=== PATIENT | male | born 2000 | race Caucasian/White ===

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

== ENCOUNTER → 2021-02-08 | Outpatient (CLI) | payer OTHER ==
--- NOTE | 2021-02-08 12:14 | REP ---
INDICATION: PRIOR HX OF FRACTURE, NEEDS XRAY FOR PURPOSE. COMPARISON: None. TECHNIQUE: AP and lateral FINDINGS: There is no acute fracture or destructive osseous lesion IMPRESSION: Within normal limits <Electronically signed by Steve Gomes > 02/08/21 [id number]
== END ==
LOC: M WUC 10:39
PROVIDERS: ATTEND Physician Assistant
DX: Z02.3 Encounter for examination for recruitment to armed forces (principal); Z87.81 Personal history of (healed) traumatic fracture